=== PATIENT | female | born 1985 | race American Indian/Alaskan Native ===

== ENCOUNTER 2019-04-14 13:51 | Emergency (ER) | payer OTHER ==
--- NOTE | 2019-04-14 14:10 | Emergency Department Report ---
Blank Doc - Documentation Documentation: 33 y o female presents to ed cc of left ankle pain s/p fall of a 2 step ladder while she was putting up handbags xr ankle LMP: 04/04/19 GOVIND valdovinos
[2019-04-14 14:17] VITALS: BP 124/91
--- NOTE | 2019-04-14 14:51 | XRay Report ---
PROCEDURE: XR ANKLE 3+V LT TECHNIQUE: Left ankle radiographs, 4 views. HISTORY: pain COMPARISONS: None currently available. FINDINGS: There is no acute fracture. There is no evidence for healing fracture. There is no acute dislocation. No significant arthrosis. Small Achilles enthesophyte and calcaneal plantar spur. There is no cortical destruction to suggest osteomyelitis. There are no suspicious osseous lesions. There are no radiopaque foreign objects. IMPRESSION: * No acute osseous findings. This document is electronically signed by Tyler Underwood MD., April 14 2019 02:49:25 PM ET
--- NOTE | 2019-04-14 15:01 | Emergency Department Report ---
HPI - General Chief Complaint: Extremity Injury, Lower Time Seen by Provider: 04/14/19 14:06 - HPI HPI: 33-year-old -[place] female presents to the emergency department with complaint of left ankle pain after falling off a two-step high ladder. The ladder / stepstool tipped over and "my body went to the right but my ankle into the left." She describes rolling her ankle. Since that time it has been swollen, painful to touch and difficult to bear weight. She has not taken anything for her symptoms prior to arrival. Denies any past medical history. ED Past Medical Hx - Past Medical History Previous Medical History?: No Hx Hypertension: No Hx Congestive Heart Failure: No Hx Diabetes: No Hx Deep Vein Thrombosis: No Hx Liver Disease: No Hx Renal Disease: No Hx Sickle Cell Disease: No Hx Seizures: No Hx Asthma: No Hx COPD: No Hx HIV: No - Surgical History Past Surgical History?: Yes Additional Surgical History: x 2 - 2000, 2011 - Social History Smoking Status: Never Smoker Substance Use Type: None - Medications Home Medications: Home Medications Medication Instructions Recorded Confirmed Last Taken Type Ibuprofen [Motrin 800 MG tab] 800 mg PO Q8HR PRN #20 tablet 04/14/19 Unknown Rx ED Review of Systems ROS: Stated complaint: L ANKLE PAIN Other details as noted in HPI Comment: All other systems reviewed and negative Musculoskeletal: joint swelling, arthralgia. denies: back pain Skin: denies: rash, lesions Neurological: denies: numbness, paresthesias Physical Exam - Physical Exam Vital Signs: Vital Signs 04/14/19 14:15 Temperature 98.2 F Pulse Rate 90 Respiratory 20 Rate Blood Pressure 124/91 O2 Sat by Pulse 97 Oximetry Physical Exam: GENERAL: The patient is well-developed well-nourished. HENT: Normocephalic. Atraumatic. Patient has moist mucous membranes. EYES: Extraocular motions are intact. NECK: Supple. Trachea is midline. CHEST/LUNGS: Clear to auscultation. There is no respiratory distress noted. HEART/CARDIOVASCULAR: Regular. There is no tachycardia. There is no murmur. ABDOMEN: There is no abdominal distention. SKIN: There is some mild nonpitting swelling to the left lateral ankle. NEURO: The patient is awake, alert, and oriented. The patient is cooperative. The patient has no focal neurologic deficits. The patient has normal speech. MUSCULOSKELETAL: There is tenderness to palpation of the left anterior and lateral ankle but no obvious deformity. Decreased range of motion of the foot and ankle secondary to pain. +2 over 4 pedal pulse of the left foot. ED Course Vital Signs 04/14/19 14:15 Temperature 98.2 F Pulse Rate 90 Respiratory 20 Rate Blood Pressure 124/91 O2 Sat by Pulse 97 Oximetry ED Medical Decision Making - Radiology Data Radiology results: image reviewed interpreted by me: X-ray of the left ankle does not show any fracture, dislocation, or any other acute process. - Medical Decision Making The patient will have her ankle at work today and presents with some pain and some swelling. X-ray does not show any fracture, dislocation, or any other acute process. She appears neurovascularly intact. Patient placed in a splint for immobilization and will be placed on crutches to be nonweightbearing. She has been given referrals for orthopedics. She will return to the ER with any worsening of her symptoms or any acute distress. - Differential Diagnosis ankle sprain, fracture, dislocation Critical Care Time: No Critical care attestation.: If time is entered above; I have spent that time in minutes in the direct care of this critically ill patient, excluding procedure time. ED Disposition Clinical Impression: Left ankle sprain Qualifiers: Encounter type: initial encounter Involved ligament of ankle: unspecified ligament Qualified Code(s): S93.402A - Sprain of unspecified ligament of left ankle, initial encounter Disposition: TO HOME OR SELFCARE Is pt being admited?: No Condition: Stable Instructions: Ankle Sprain (ED) Additional Instructions: Please follow up with an orthopedist and I will give you a referral for 2 local orthopedic groups. I suggest that you remain nonweightbearing on crutches until follow-up with the orthopedist or until complete resolution of your ankle pain. Return to the emergency Department with any worsening of your symptoms or with any acute distress. Prescriptions: Ibuprofen [Motrin 800 MG tab] 800 mg PO Q8HR PRN #20 tablet PRN Reason: Pain , Severe (7-10) Referrals: AMBROCIO SILVESTRE MD [Staff Physician] - 3-5 Days [facility]] - 3-5 Days Forms: Work/School Release Form(ED) Time of Disposition: 15:00
[2019-04-14] MEDS ORDERED: IBUPROFEN PO ONE (15:03)
== END 2019-04-14 15:28 | disposition home or self-care (01) ==
LOC: ED 13:51
DX: S93.402A Sprain of unspecified ligament of left ankle, initial encounter (principal); W17.89XA Other fall from one level to another, initial encounter; Y93.89 Activity, other specified; Y92.89 Other specified places as the place of occurrence of the external cause; Y99.8 Other external cause status